=== PATIENT | male | born 1955 | race African-American/Black ===

== ENCOUNTER 2016-06-01 02:06 | Emergency (ER) | payer OTHER ==
[~2016-06-01] VITALS: Ht 175.3 cm; Wt 65.0 kg
[~2016-06-01 02:06] MED LIST: ALBU8HFA IH; AMLO10TA55 PO; AMOX1TAB15 PO; BRIM10DR10 OS; BRIN10DR OS; CARI350 PO; CHOL20002 PO; DOXY150T PO; HYDR25TA PO; LID5O TP; LORA10TA7 PO; NEBI5 PO; OMEP40CA12 PO; OXYB5 PO; PROMVCC5L PO; SIMV20TA6 PO; TRAV5DRO OS; TRI115C TP; TYL3 PO
[2016-06-01 03:43] LABS: BASOPHILS % (AUTO) 0.3 % (0.0-2.0); EOSINOPHILS % (AUTO) 7.4 % (1.0-6.0); HEMATOCRIT 34.6 % (41-53); HEMOGLOBIN 11.4 g/dL (13.5-17.5); LYMPHOCYTES % (AUTO) 23.8 % (22.0-44.0); MEAN CORPUSCULAR HEMOGLOBIN 29.7 pg (26.0-34.0); MEAN CORPUSCULAR HGB CONC 33.1 G/dL (31.0-37.0); MEAN CORPUSCULAR VOLUME 90 fL (80-100); MONOCYTES # (AUTO) 0.6 K/uL (0.1-1.0); MONOCYTES % (AUTO) 14.8 % (2.0-9.0); NEUTROPHILS # (AUTO) 2.2 K/uL (1.8-7.7); NEUTROPHILS % (AUTO) 53.7 % (40.0-70.0); PLATELET COUNT (AUTO) 281 K/uL (150-450); RED BLOOD CELL COUNT(AUTO) 3.85 MIL/uL (4.50-5.90); WHITE BLOOD COUNT (AUTO) 4.1 K/uL (4.5-11.0)
[2016-06-01 03:51] LABS: ANION GAP 10 mmol/L (8-16); CALCIUM, TOTAL 9.4 mg/dL (8.8-10.5); CARBON DIOXIDE 30 mmol/L (22-29); CHLORIDE 100 mmol/L (98-107); CREATININE 1.05 mg/dL (0.60-1.30); GLOMERULAR FILTR. RATE CALC > 60 mL/min (>60); POTASSIUM 3.6 mmol/L (3.5-5.1); SODIUM SERUM 140 mmol/L (136-145); UREA NITROGEN, BLOOD 8 mg/dL (7-18)
[2016-06-01 03:55] LABS: ALANINE AMINOTRANSFERASE 20 U/L (12-78); ALBUMIN 3.6 g/dL (3.4-5.0); ASPARTATE AMINOTRANSFERASE 18 U/L (15-37); BILIRUBIN,TOTAL 0.4 mg/dL (0.1-1.0); TOTAL PROTEIN, SERUM 7.7 g/dL (6.4-8.2)
[2016-06-01 04:57] LABS: APPEARANCE,URINE CLEAR (CLEAR); GLUCOSE, URINE (UA) NEGATIVE (NEGATIVE); PROTEIN,URINE NEGATIVE (NEGATIVE)
[2016-06-01 04:58] LABS: ADD UA MICROSCOPIC NO; KETONES,URINE NEGATIVE (NEGATIVE); LEUKOCYTE ESTERASE ,URINE NEGATIVE (NEGATIVE); OCCULT BLOOD,URINE NEGATIVE (NEGATIVE)
[2016-06-01 05:53] VITALS: BP 127/88
== END 2016-06-01 06:09 | disposition home or self-care (01) ==
LOC: EMS 02:06
DX: S46.812A Strain of other muscles, fascia and tendons at shoulder and upper arm level, left arm, initial encounter (principal); R10.9 Unspecified abdominal pain; I10 Essential (primary) hypertension; F17.210 Nicotine dependence, cigarettes, uncomplicated; F12.90 Cannabis use, unspecified, uncomplicated; X58.XXXA Exposure to other specified factors, initial encounter; Y93.89 Activity, other specified; Y92.89 Other specified places as the place of occurrence of the external cause; Y99.8 Other external cause status
CPT/HCPCS: 99284

== ENCOUNTER 2016-06-27 23:20 | Emergency (ER) | payer OTHER ==
[~2016-06-27] VITALS: Ht 175.3 cm; Wt 68.0 kg
[~2016-06-27 23:20] MED LIST changes: -AMOX1TAB15 PO; -DOXY150T PO; -LID5O TP; -PROMVCC5L PO; -TYL3 PO
[2016-06-28 01:24] LABS: BASOPHILS # (AUTO) 0.02 K/uL (0.00-0.20); BASOPHILS % (AUTO) 0.6 % (0.0-2.0); EOSINOPHILS # (AUTO) 0.29 K/uL (0.00-0.70); EOSINOPHILS % (AUTO) 7.24 % (1.0-6.0); HEMATOCRIT 32.4 % (41-53); HEMOGLOBIN 11.1 g/dL (13.5-17.5); LYMPHOCYTES # (AUTO) 1.7 K/uL (1.0-4.8); MEAN CORPUSCULAR HEMOGLOBIN 30.4 pg (26.0-34.0); MEAN CORPUSCULAR HGB CONC 34.2 G/dL (31.0-37.0); MEAN CORPUSCULAR VOLUME 89 fL (80-100); MONOCYTES # (AUTO) 0.5 K/uL (0.1-1.0); MONOCYTES % (AUTO) 11.3 % (2.0-9.0); NEUTROPHILS # (AUTO) 1.5 K/uL (1.8-7.7); NEUTROPHILS % (AUTO) 37.9 % (40.0-70.0); PLATELET COUNT (AUTO) 238 K/uL (150-450); RED BLOOD CELL COUNT(AUTO) 3.65 MIL/uL (4.50-5.90); RED CELL DISTRIBUTION WIDTH 15.2 % (11.5-14.5)
[2016-06-28 01:37] LABS: ALANINE AMINOTRANSFERASE 19 U/L (12-78); ALBUMIN 3.5 g/dL (3.4-5.0); ANION GAP 9 mmol/L (8-16); ASPARTATE AMINOTRANSFERASE 23 U/L (15-37); BILIRUBIN,TOTAL 0.4 mg/dL (0.1-1.0); CALCIUM, TOTAL 8.7 mg/dL (8.8-10.5); CARBON DIOXIDE 27 mmol/L (22-29); CHLORIDE 101 mmol/L (98-107); CREATININE 0.89 mg/dL (0.60-1.30); GLOMERULAR FILTR. RATE CALC > 60 mL/min (>60); SODIUM SERUM 137 mmol/L (136-145); TOTAL PROTEIN, SERUM 7.1 g/dL (6.4-8.2); UREA NITROGEN, BLOOD 15 mg/dL (7-18)
[2016-06-28 02:25] LABS: APPEARANCE,URINE CLEAR (CLEAR); GLUCOSE, URINE (UA) NEGATIVE (NEGATIVE); KETONES,URINE NEGATIVE (NEGATIVE); LEUKOCYTE ESTERASE ,URINE NEGATIVE (NEGATIVE); OCCULT BLOOD,URINE NEGATIVE (NEGATIVE); PH,URINE 5.5 (5.0-8.0); PROTEIN,URINE NEGATIVE (NEGATIVE)
[2016-06-28] MEDS ORDERED: POTASSIUM CHLORIDE 20 MEQ ER TABLET PO ONE (02:30)
[2016-06-28 02:34] VITALS: BP 121/78
[2016-06-28 03:02] LABS: RBC,URINE None Seen /HPF (0-2); WBC,URINE None Seen /HPF (0-5)
== END 2016-06-28 03:19 | disposition home or self-care (01) ==
LOC: EMS 23:22
DX: M79.604 Pain in right leg (principal); G89.29 Other chronic pain; E87.6 Hypokalemia; I10 Essential (primary) hypertension; F17.210 Nicotine dependence, cigarettes, uncomplicated; F12.90 Cannabis use, unspecified, uncomplicated
CPT/HCPCS: 36415; 80053; 80307; 81001; 85025; 99284; G0480

== ENCOUNTER 2016-10-02 01:15 | Emergency (ER) | payer OTHER ==
[~2016-10-02] VITALS: Ht 175.3 cm; Wt 65.9 kg
[2016-10-02] MEDS ORDERED: PROPARACAINE HCL 0.5% 15 ML OPHTHALMIC SOLUTION OS ONE (04:15)
[2016-10-02 06:14] VITALS: BP 127/81
[2016-10-02] MEDS ORDERED: TIMOLOL MALEATE 0.5% 5 ML OPHTHALMIC SOLUTION OS ONE (06:15)
[2016-10-02] MEDS ORDERED: AcetaZOLAMIDE 250 MG TABLET PO ONE (06:30)
== END 2016-10-02 06:50 | disposition home or self-care (01) ==
LOC: EMS 01:16
DX: H10.89 Other conjunctivitis (principal); H40.9 Unspecified glaucoma; I10 Essential (primary) hypertension; F17.210 Nicotine dependence, cigarettes, uncomplicated; F12.90 Cannabis use, unspecified, uncomplicated
CPT/HCPCS: 99284

== ENCOUNTER 2016-10-05 01:16 | Emergency (ER) | payer OTHER ==
[~2016-10-05] VITALS: Ht 175.3 cm; Wt 65.0 kg
[2016-10-05 01:50] VITALS: BP 119/67
== END 2016-10-05 02:13 | disposition home or self-care (01) ==
LOC: EMS 01:18
DX: S40.261A Insect bite (nonvenomous) of right shoulder, initial encounter (principal); I10 Essential (primary) hypertension; F12.90 Cannabis use, unspecified, uncomplicated; F17.210 Nicotine dependence, cigarettes, uncomplicated; W57.XXXA Bitten or stung by nonvenomous insect and other nonvenomous arthropods, initial encounter; Y93.89 Activity, other specified; Y92.89 Other specified places as the place of occurrence of the external cause; Y99.8 Other external cause status
CPT/HCPCS: 99281

== ENCOUNTER 2017-01-12 02:36 | Emergency (ER) | payer OTHER ==
[~2017-01-12] VITALS: Ht 175.3 cm; Wt 75.0 kg
[2017-01-12 06:05] VITALS: BP 127/80
== END 2017-01-12 06:40 | disposition home or self-care (01) ==
LOC: EMS 02:37
DX: S09.90XA Unspecified injury of head, initial encounter (principal); I10 Essential (primary) hypertension; W22.8XXA Striking against or struck by other objects, initial encounter; Y93.89 Activity, other specified; Y92.480 Sidewalk as the place of occurrence of the external cause; Y99.8 Other external cause status
CPT/HCPCS: 99283

== ENCOUNTER 2017-07-17 06:54 | Emergency (ER) | payer OTHER ==
[~2017-07-17] VITALS: Ht 182.9 cm; Wt 66.0 kg
[2017-07-17] MEDS ORDERED: HYDROCODONE/ACETAMINOPHEN 5-325 MG TABLET PO ONE (08:45)
[2017-07-17 09:54] VITALS: BP 163/56
== END 2017-07-17 10:46 | disposition home or self-care (01) ==
LOC: EMS 06:55
DX: S05.12XA Contusion of eyeball and orbital tissues, left eye, initial encounter (principal); S20.211A Contusion of right front wall of thorax, initial encounter; S00.83XA Contusion of other part of head, initial encounter; F17.210 Nicotine dependence, cigarettes, uncomplicated; I10 Essential (primary) hypertension; F12.90 Cannabis use, unspecified, uncomplicated; Z88.8 Allergy status to other drugs, medicaments and biological substances; W21.13XA Struck by golf club, initial encounter; Y93.89 Activity, other specified; Y92.39 Other specified sports and athletic area as the place of occurrence of the external cause; Y99.8 Other external cause status
CPT/HCPCS: 70486; 71101; 99284; 99406

== ENCOUNTER 2019-02-04 02:46 | Inpatient (IN) | payer MEDICARE, OTHER ==
[~2019-02-04] VITALS: Ht 175.3 cm; Wt 65.2 kg
[~2019-02-04 02:46] MED LIST changes: -BRIM10DR10 OS; -BRIN10DR OS; -CARI350 PO; -CHOL20002 PO; -LORA10TA7 PO; -OMEP40CA12 PO; -OXYB5 PO; -SIMV20TA6 PO
[2019-02-04 03:38] LABS: GLUCOSE,POINT OF CARE 140 MG/DL (70-110)
[2019-02-04 03:39] LABS: BASOPHILS % (AUTO) 0.6 % (0.0-2.0); EOSINOPHILS % (AUTO) 3.4 % (1.0-6.0); HEMATOCRIT 39.6 % (41-53); HEMOGLOBIN 13.4 g/dL (13.5-17.5); LYMPHOCYTES # (AUTO) 1.2 K/uL (1.0-4.8); LYMPHOCYTES % (AUTO) 27.5 % (22.0-44.0); MEAN CORPUSCULAR HEMOGLOBIN 32.3 pg (26.0-34.0); MEAN CORPUSCULAR HGB CONC 33.9 G/dL (31.0-37.0); MEAN CORPUSCULAR VOLUME 95 fL (80-100); MONOCYTES # (AUTO) 0.7 K/uL (0.1-1.0); MONOCYTES % (AUTO) 15.6 % (2.0-9.0); NEUTROPHILS # (AUTO) 2.4 K/uL (1.8-7.7); NEUTROPHILS % (AUTO) 52.9 % (40.0-70.0); PLATELET COUNT (AUTO) 265 K/uL (150-450); RED BLOOD CELL COUNT(AUTO) 4.15 MIL/uL (4.50-5.90)
[2019-02-04 04:03] LABS: INR 1.2 (0.9-1.1); PROTHROMBIN TIME 12.3 SEC (9.4-11.6)
[2019-02-04 04:07] LABS: ALANINE AMINOTRANSFERASE 21 U/L (12-78); ALBUMIN 3.7 g/dL (3.4-5.0); ALKALINE PHOSPHATASE 136 U/L (46-116); ANION GAP 12 mmol/L (8-16); ASPARTATE AMINOTRANSFERASE 20 U/L (15-37); BILIRUBIN,TOTAL 0.3 mg/dL (0.1-1.0); CALCIUM, TOTAL 9.2 mg/dL (8.8-10.5); CARBON DIOXIDE 27 mmol/L (22-29); CHLORIDE 101 mmol/L (98-107); CREATINE KINASE, TOTAL ONLY 187 U/L (39-308); CREATININE 0.94 mg/dL (0.60-1.30); GLOMERULAR FILTR. RATE CALC > 60 mL/min (>60); GLUCOSE,RANDOM 109 mg/dL (70-110); SODIUM SERUM 140 mmol/L (136-145); TOTAL PROTEIN, SERUM 7.5 g/dL (6.4-8.2); UREA NITROGEN, BLOOD 11 mg/dL (7-18)
[2019-02-04 04:10] LABS: POTASSIUM 2.8 mmol/L (3.5-5.1)
[2019-02-04 04:14] LABS: AMMONIA 42 umol/L (11-32)
[2019-02-04 04:17] LABS: TROPONIN I < 0.02 ng/mL (0.00-0.05)
[2019-02-04 04:21] LABS: LACTIC ACID 4.5 mmol/L (0.4-2.0)
[2019-02-04] MEDS ORDERED: SODIUM CHLORIDE 0.9% 1,000 ML IV ONE ×3 (04:26→08:30)
[2019-02-04] MEDS ORDERED: POTASSIUM CHLORIDE 20 MEQ ER TABLET PO ONE (04:30)
[2019-02-04] MEDS: POTASSIUM CHL 10 MEQ/WATER 50 ML IV SCH ×3 (05:02→07:30)
[2019-02-04 05:52] LABS: APPEARANCE,URINE CLEAR (CLEAR); BILIRUBIN,URINE NEGATIVE (NEGATIVE); GLUCOSE, URINE (UA) NEGATIVE (NEGATIVE); KETONES,URINE NEGATIVE (NEGATIVE); LEUKOCYTE ESTERASE ,URINE NEGATIVE (NEGATIVE); NITRATE,URINE NEGATIVE (NEGATIVE); OCCULT BLOOD,URINE NEGATIVE (NEGATIVE); PROTEIN,URINE NEGATIVE (NEGATIVE); UROBILINOGEN,URINE 0.2 mg/dL (<=1.0)
[2019-02-04 05:56] LABS: AMPHET/METH SCREEN,URINE NEGATIVE (NEGATIVE); BARBITURATE SCREEN, URINE NEGATIVE (NEGATIVE); BENZODIAZEPINES SCREEN,URINE NEGATIVE (NEGATIVE); CANNABINOID SCREEN,URINE NEGATIVE (NEGATIVE); COCAINE SCREEN,URINE NEGATIVE (NEGATIVE); METHADONE SCREEN, URINE NEGATIVE (NEGATIVE); OPIATE SCREEN,URINE NEGATIVE (NEGATIVE)
[2019-02-04 05:58] LABS: PHENCYCLIDINE SCREEN,URINE NEGATIVE (NEGATIVE)
[2019-02-04] MEDS ORDERED: ACETAMINOPHEN 325 MG TABLET PO PRN (08:15)
[2019-02-04] MEDS ORDERED: POTASSIUM CHLORIDE 20 MEQ ER TABLET PO PRN (08:30)
[2019-02-04] MEDS ORDERED: MAGNESIUM OXIDE 400 MG TABLET PO PRN (08:30)
[2019-02-04] MEDS ORDERED: MAGNESIUM SULFATE 4 GM/WATER 100 ML IV PRN (08:30)
[2019-02-04] MEDS ORDERED: MAGNESIUM SULFATE 2 GM/WATER 50 ML IV PRN (08:30)
[2019-02-04] MEDS ORDERED: CloNIDine HCL 0.1 MG TABLET PO PRN (08:30)
[2019-02-04] MEDS ORDERED: POTASSIUM CHL 10 MEQ/WATER 50 ML IV PRN (08:30)
[2019-02-04] MEDS: DOCUSATE SODIUM 100 MG CAPSULE PO SCH ×2 (08:52→20:56)
[2019-02-04] MEDS: MULTIVITAMINS WITH MINERALS, THERAPEUTIC TABLET PO SCH (08:52)
[2019-02-04] MEDS: FAMOTIDINE 20 MG TABLET PO SCH (08:52)
[2019-02-04] MEDS: HEPARIN SODIUM,PORCINE 5,000 UNITS/ML VIAL SQ SCH ×2 (08:53→20:56)
[2019-02-04 10:03] LABS: ALBUMIN 3.7 g/dL (3.4-5.0)
[2019-02-04 10:04] LABS: ACETAMINOPHEN < 2 mcg/mL (10-30)
[2019-02-04 20:59] VITALS: BP 127/94
[2019-02-04] MEDS ORDERED: SODIUM CHLORIDE 0.9% 250 ML IV ONE (21:49)
[2019-02-05 00:30] VITALS: BP 135/85
[2019-02-05 05:15] VITALS: BP 141/94
[2019-02-05 07:06] LABS: BASOPHILS % (AUTO) 0.3 % (0.0-2.0); EOSINOPHILS % (AUTO) 5.1 % (1.0-6.0); HEMATOCRIT 40.6 % (41-53); HEMOGLOBIN 13.8 g/dL (13.5-17.5); LYMPHOCYTES # (AUTO) 1.1 K/uL (1.0-4.8); LYMPHOCYTES % (AUTO) 29.7 % (22.0-44.0); MEAN CORPUSCULAR HEMOGLOBIN 32.2 pg (26.0-34.0); MEAN CORPUSCULAR HGB CONC 33.9 G/dL (31.0-37.0); MEAN CORPUSCULAR VOLUME 95 fL (80-100); MONOCYTES # (AUTO) 0.6 K/uL (0.1-1.0); MONOCYTES % (AUTO) 16.5 % (2.0-9.0); NEUTROPHILS # (AUTO) 1.8 K/uL (1.8-7.7); NEUTROPHILS % (AUTO) 48.4 % (40.0-70.0); PLATELET COUNT (AUTO) 244 K/uL (150-450); RED BLOOD CELL COUNT(AUTO) 4.28 MIL/uL (4.50-5.90); RED CELL DISTRIBUTION WIDTH 13.2 % (11.5-14.5)
[2019-02-05 07:13] LABS: ANION GAP 9 mmol/L (8-16); CALCIUM, TOTAL 8.6 mg/dL (8.8-10.5); CARBON DIOXIDE 27 mmol/L (22-29); CHLORIDE 107 mmol/L (98-107); CREATININE 0.79 mg/dL (0.60-1.30); GLOMERULAR FILTR. RATE CALC > 60 mL/min (>60); GLUCOSE,RANDOM 85 mg/dL (70-110); POTASSIUM 3.2 mmol/L (3.5-5.1); SODIUM SERUM 143 mmol/L (136-145); UREA NITROGEN, BLOOD 7 mg/dL (7-18)
[2019-02-05 07:52] VITALS: BP 149/77
[2019-02-05] MEDS: DOCUSATE SODIUM 100 MG CAPSULE PO SCH ×2 (10:44→21:00)
[2019-02-05] MEDS: FAMOTIDINE 20 MG TABLET PO SCH (10:44)
[2019-02-05] MEDS: MULTIVITAMINS WITH MINERALS, THERAPEUTIC TABLET PO SCH (10:44)
[2019-02-05] MEDS: HEPARIN SODIUM,PORCINE 5,000 UNITS/ML VIAL SQ SCH ×2 (10:45→21:08)
[2019-02-05 11:44] VITALS: BP 161/90
[2019-02-05 15:44] VITALS: BP 131/86
[2019-02-05 20:20] VITALS: BP 147/78
[2019-02-06 01:27] VITALS: BP 138/71
[2019-02-06 04:30] VITALS: BP 147/87
[2019-02-06] MEDS: MULTIVITAMINS WITH MINERALS, THERAPEUTIC TABLET PO SCH (08:17)
[2019-02-06] MEDS: FAMOTIDINE 20 MG TABLET PO SCH (08:17)
[2019-02-06] MEDS: DOCUSATE SODIUM 100 MG CAPSULE PO SCH (08:21)
[2019-02-06] MEDS: HEPARIN SODIUM,PORCINE 5,000 UNITS/ML VIAL SQ SCH (08:21)
[2019-02-06 08:26] VITALS: BP 150/90
[2019-02-06 12:20] VITALS: BP 153/88
== END 2019-02-06 15:35 | disposition home or self-care (01) | DRG 91 ==
LOC: EMS 02:46 → 5S 18:10
PROVIDERS: ADMIT Internal Medicine; ATTEND Internal Medicine
DX: G92 Toxic encephalopathy (principal); E43 Unspecified severe protein-calorie malnutrition; E87.6 Hypokalemia; F10.10 Alcohol abuse, uncomplicated; H54.62 Unqualified visual loss, left eye, normal vision right eye; I10 Essential (primary) hypertension; Y90.9 Presence of alcohol in blood, level not specified; F17.210 Nicotine dependence, cigarettes, uncomplicated; Z88.8 Allergy status to other drugs, medicaments and biological substances; Z68.21 Body mass index [BMI] 21.0-21.9, adult
CPT/HCPCS: 70450; 83605; 83735; 84132; 93005; G0480; G0481; J1644; J3475; J3480; J7030; J7050

== ENCOUNTER 2020-01-17 07:56 | Inpatient (IN) | payer MEDICARE, OTHER ==
[~2020-01-17] VITALS: Ht 175.3 cm; Wt 68.9 kg
[~2020-01-17 07:56] MED LIST changes: -NEBI5 PO; +NEBI5TAB2 PO
[2020-01-17] MEDS ORDERED: SODIUM CHLORIDE 0.9% 1,000 ML IV ONE ×2 (08:15→11:45)
[2020-01-17] MEDS ORDERED: FAMOTIDINE 10 MG/ML 2 ML VIAL IV ONE (08:15)
[2020-01-17] MEDS ORDERED: ONDANSETRON HCL 4 MG/2 ML VIAL IVP ONE (08:15)
[2020-01-17] MEDS ORDERED: KETOROLAC TROMETHAMINE 30 MG/ML VIAL IVP ONE ×2 (08:15→11:45)
[2020-01-17] MEDS ORDERED: PB/HYOSCY/ATR/SCOP/LIDO/MAALOX 55 ML BOTTLE PO ONE (08:15)
[2020-01-17 08:43] LABS: BASOPHILS % (AUTO) 0.5 % (0.0-2.0); EOSINOPHILS % (AUTO) 2.1 % (1.0-6.0); HEMATOCRIT 45.6 % (41-53); HEMOGLOBIN 15.8 g/dL (13.5-17.5); LYMPHOCYTES # (AUTO) 1.8 K/uL (1.0-4.8); LYMPHOCYTES % (AUTO) 20.9 % (22.0-44.0); MEAN CORPUSCULAR HEMOGLOBIN 33.3 pg (26.0-34.0); MEAN CORPUSCULAR HGB CONC 34.7 G/dL (31.0-37.0); MEAN CORPUSCULAR VOLUME 96 fL (80-100); MONOCYTES # (AUTO) 0.5 K/uL (0.1-1.0); NEUTROPHILS % (AUTO) 70.5 % (40.0-70.0); PLATELET COUNT (AUTO) 237 K/uL (150-450); RED BLOOD CELL COUNT(AUTO) 4.75 MIL/uL (4.50-5.90)
[2020-01-17] MEDS ORDERED: METOCLOPRAMIDE HCL 5 MG/ML 2 ML VIAL IVP ONE (09:00)
[2020-01-17] MEDS ORDERED: CAPSAICIN 0.025% 60 GM CREAM TP ONE (09:00)
[2020-01-17] MEDS ORDERED: DiphenhydrAMINE HCL 50 MG/ML VIAL IVP ONE (09:00)
[2020-01-17 09:27] LABS: ALANINE AMINOTRANSFERASE 24 U/L (12-78); ALBUMIN 3.8 g/dL (3.4-5.0); ALKALINE PHOSPHATASE 144 U/L (46-116); ANION GAP 13 mmol/L (8-16); ASPARTATE AMINOTRANSFERASE 23 U/L (15-37); BILIRUBIN,TOTAL 0.3 mg/dL (0.1-1.0); CALCIUM, TOTAL 9.2 mg/dL (8.8-10.5); CARBON DIOXIDE 25 mmol/L (22-29); CHLORIDE 101 mmol/L (98-107); CREATINE KINASE, TOTAL ONLY 102 U/L (39-308); CREATININE 0.95 mg/dL (0.60-1.30); GLOMERULAR FILTR. RATE CALC > 60 mL/min (>60); GLUCOSE,RANDOM 179 mg/dL (70-110); LIPASE 89 U/L (73-393); SODIUM SERUM 139 mmol/L (136-145); TOTAL PROTEIN, SERUM 7.5 g/dL (6.4-8.2); UREA NITROGEN, BLOOD 16 mg/dL (7-18)
[2020-01-17 09:35] LABS: POTASSIUM 2.6 mmol/L (3.5-5.1)
[2020-01-17] MEDS ORDERED: SODIUM CHLORIDE 0.9% 100 ML ONE (09:44)
[2020-01-17] MEDS ORDERED: IOVERSOL 320 MG/ML 100 ML VIAL ONE (09:44)
[2020-01-17] MEDS ORDERED: POTASSIUM CHLORIDE 20 MEQ ER TABLET PO ONE (09:45)
[2020-01-17] MEDS: POTASSIUM CHL 10 MEQ/WATER 50 ML IV SCH ×7 (09:54→20:15)
[2020-01-17 11:06] LABS: AMPHET/METH SCREEN,URINE POSITIVE (NEGATIVE); APPEARANCE,URINE CLEAR (CLEAR); BARBITURATE SCREEN, URINE NEGATIVE (NEGATIVE); BENZODIAZEPINES SCREEN,URINE NEGATIVE (NEGATIVE); BILIRUBIN,URINE NEGATIVE (NEGATIVE); CANNABINOID SCREEN,URINE POSITIVE (NEGATIVE); COCAINE SCREEN,URINE POSITIVE (NEGATIVE); GLUCOSE, URINE (UA) >=1000 mg/dL (NEGATIVE); KETONES,URINE NEGATIVE (NEGATIVE); LEUKOCYTE ESTERASE ,URINE NEGATIVE (NEGATIVE); METHADONE SCREEN, URINE NEGATIVE (NEGATIVE); NITRATE,URINE NEGATIVE (NEGATIVE); OCCULT BLOOD,URINE TRACE (NEGATIVE); OPIATE SCREEN,URINE NEGATIVE (NEGATIVE); PH,URINE 5.5 (5.0-8.0); PROTEIN,URINE NEGATIVE (NEGATIVE)
[2020-01-17 11:08] LABS: PHENCYCLIDINE SCREEN,URINE NEGATIVE (NEGATIVE)
[2020-01-17 11:17] LABS: BACTERIA,URINE None Seen /HPF (None Seen); SQUAMOUS EPITHELIAL CELL,UR Few /LPF (None Seen); WBC,URINE None Seen /HPF (0-5)
[2020-01-17] MEDS ORDERED: MORPHINE SULFATE 2 MG/ML SYRINGE IVP ONE (11:45)
[2020-01-17] MEDS ORDERED: 0.9% SODIUM CHLORIDE 10 ML SYRINGE IVP PRN (12:45)
[2020-01-17] MEDS ORDERED: ONDANSETRON HCL 4 MG/2 ML VIAL IVP PRN ×2 (12:45)
[2020-01-17] MEDS ORDERED: DEXTROSE 5%-0.45% SODIUM CHL 1,000 ML IV SCH (12:45)
[2020-01-17] MEDS ORDERED: ACETAMINOPHEN 325 MG TABLET PO PRN ×2 (12:45)
[2020-01-17] MEDS: PANTOPRAZOLE SODIUM 40 MG/VIAL IVP SCH (14:32)
[2020-01-17 16:01] LABS: POTASSIUM 3.2 mmol/L (3.5-5.1)
[2020-01-17] MEDS: HEPARIN SODIUM,PORCINE 5,000 UNITS/ML VIAL SQ SCH (16:33)
[2020-01-17 16:40] LABS: MAGNESIUM 1.7 mg/dL (1.80-2.40)
[2020-01-17] MEDS ORDERED: MAGNESIUM SULFATE 1 GM in DEXTROSE 5%-WATER 50 ML IV ONE (17:15)
[2020-01-17 21:00] VITALS: BP 117/78
[2020-01-17] MEDS: DOCUSATE SODIUM 100 MG CAPSULE PO SCH (21:00)
[2020-01-17] MEDS: MORPHINE SULFATE 2 MG/ML SYRINGE IVP PRN (21:03)
[2020-01-17] MEDS ORDERED: INFLUENZA VIRUS VACCINE QVS 2020-21 (6MO+)/PF 60 MCG/0.5 ML SYRINGE IM ONE (21:45)
[2020-01-17 22:00] VITALS: BP 125/84
[2020-01-17] MEDS ORDERED: MAGNESIUM SULFATE 4 GM/WATER 100 ML IV PRN (22:45)
[2020-01-17] MEDS ORDERED: MAGNESIUM SULFATE 2 GM/WATER 50 ML IV PRN (22:45)
[2020-01-17] MEDS ORDERED: MAGNESIUM OXIDE 400 MG TABLET PO PRN (22:45)
[2020-01-17] MEDS: PIPERACILLIN/TAZO 3.375 GM/D5W 50 ML IV SCH (23:06)
[2020-01-17] MEDS ORDERED: SODIUM CHLORIDE 0.9% 250 ML IV ONE (23:13)
[2020-01-17 23:37] LABS: LACTIC ACID 10.9 mmol/L (0.4-2.0)
[2020-01-18] VITALS: BP 109/50
[2020-01-18] MEDS ORDERED: POTASSIUM CHL 20 MEQ/0.45% NS 1,000 ML IV SCH
[2020-01-18] MEDS: HEPARIN SODIUM,PORCINE 5,000 UNITS/ML VIAL SQ SCH ×3 (00:11→16:00)
[2020-01-18] MEDS ORDERED: SODIUM CHLORIDE 0.9% 1,000 ML ONE ×2 (00:12→13:30)
[2020-01-18] MEDS ORDERED: SODIUM CHLORIDE 0.9% 1,000 ML IV ONE ×2 (00:15→09:15)
[2020-01-18 04:00] VITALS: BP 109/83
[2020-01-18] MEDS: PIPERACILLIN/TAZO 3.375 GM/D5W 50 ML IV SCH ×2 (04:21→10:14)
[2020-01-18] MEDS: MORPHINE SULFATE 2 MG/ML SYRINGE IVP PRN ×3 (04:43→18:30)
[2020-01-18 04:45] VITALS: BP 100/57
[2020-01-18 05:32] LABS: BASOPHILS % (AUTO) 0.4 % (0.0-2.0); EOSINOPHILS % (AUTO) 0.1 % (1.0-6.0); HEMATOCRIT 53.5 % (41-53); HEMOGLOBIN 17.6 g/dL (13.5-17.5); LYMPHOCYTES % (AUTO) 4.4 % (22.0-44.0); MEAN CORPUSCULAR HEMOGLOBIN 32.7 pg (26.0-34.0); MEAN CORPUSCULAR HGB CONC 32.8 G/dL (31.0-37.0); MEAN CORPUSCULAR VOLUME 100 fL (80-100); MONOCYTES # (AUTO) 1.3 K/uL (0.1-1.0); MONOCYTES % (AUTO) 5.6 % (2.0-9.0); PLATELET COUNT (AUTO) 244 K/uL (150-450); RED BLOOD CELL COUNT(AUTO) 5.38 MIL/uL (4.50-5.90); RED CELL DISTRIBUTION WIDTH 13.4 % (11.5-14.5)
[2020-01-18 06:02] LABS: NEUTROPHILS % (AUTO) 89.5 % (40.0-70.0)
[2020-01-18 06:04] LABS: CALCIUM, TOTAL 8.4 mg/dL (8.8-10.5); CREATININE 2.39 mg/dL (0.60-1.30); MAGNESIUM 2.4 mg/dL (1.80-2.40); PHOSPHORUS 4.5 mg/dL (2.5-4.9); POTASSIUM 4.4 mmol/L (3.5-5.1)
[2020-01-18] MEDS ORDERED: SODIUM CHLORIDE 0.45% 1,000 ML IV ONE (06:30)
[2020-01-18 08:00] VITALS: BP 97/33
[2020-01-18] MEDS ORDERED: NOREPINEPHRINE 4 MG/D5%-WATER 250 ML IV ONE (09:00)
[2020-01-18] MEDS: DOCUSATE SODIUM 100 MG CAPSULE PO SCH ×2 (09:00→21:00)
[2020-01-18] MEDS ORDERED: NOREPINEPHRINE 4 MG/D5%-WATER 250 ML IV PRN (09:15)
[2020-01-18] MEDS: PANTOPRAZOLE SODIUM 40 MG/VIAL IVP SCH (09:54)
[2020-01-18] MEDS ORDERED: BUPIVACAINE 0.25%/EPI 1:200,000/PF 10 ML VIAL ONE (10:53)
[2020-01-18] MEDS ORDERED: BUPIVACAINE HCL/PF 0.5% 30 ML VIAL ONE (10:54)
[2020-01-18] MEDS ORDERED: SODIUM BICARBONATE 150 MEQ in DEXTROSE 5%-WATER 1,000 ML IV SCH (11:00)
[2020-01-18] MEDS ORDERED: VANCOMYCIN HCL 1 GM/D5% WATER 200 ML IV ONE (11:00)
[2020-01-18] MEDS ORDERED: SODIUM CHLORIDE 0.9% 500 ML IV ONE ×2 (11:07→15:48)
[2020-01-18] MEDS ORDERED: HEPARIN SODIUM,PORCINE 1,000 UNITS/ML VIAL ONE (11:21)
[2020-01-18] MEDS ORDERED: MIDAZOLAM HCL 2 MG/2 ML VIAL IVP ONE (12:00)
[2020-01-18] MEDS ORDERED: FentaNYL CITRATE-PF 100 MCG/2 ML VIAL IVP ONE (12:00)
[2020-01-18] MEDS ORDERED: MetroNIDAZOLE 500 MG/NACL 100 ML IV ONE (12:26)
[2020-01-18] MEDS ORDERED: SODIUM CHLORIDE 0.9% 10 ML ONE (12:26)
[2020-01-18] MEDS ORDERED: CefTRIAXone SODIUM 1 GM/VIAL ONE (12:26)
[2020-01-18 13:05] LABS: ABG A-A DIFF O2 27.2 mmHg (10-20.0); ABG BASE EXCESS -18.9 mmol/L (-2.0-3.0); ABG CARBOXYHEMOGLOBIN 0.4 % (0.0-1.5); ABG HCO3 10.9 mmol/L (22.0-26.0); ABG METHEMOGLOBIN 0.3 % (0.0-1.5); ABG OXYGEN CONTENT 17.9 mL/dL (15.0-23.0); ABG OXYGEN SATURATION 99.5 % (95.0-98.0); ABG OXYHEMOGLOBIN 98.8 % (94.0-100.0); ABG PCO2 45 mmHg (35-45); ABG TOTAL HEMOGLOBIN 12.4 G/dL (12.0-18.0); PO2, ARTERIAL BG 279.2 mmHg (79.0-87.0); SOURCE, BLOOD GAS ARTERIAL; TEMPERATURE, FAHRENHEIT, BG 98.3 FAHREN (96.0-98.6)
[2020-01-18 13:06] LABS: ABG PH 7.037 (7.35-7.450); SITE, BLOOD GAS ARTERIAL LINE
[2020-01-18 13:07] LABS: O2 DEVICE,BLOOD GAS VENTILATOR (ROOM AIR); VT, ABG 500 ml
[2020-01-18] MEDS ORDERED: SODIUM BICARBONATE [ADULT] 8.4% 50 MEQ/50 ML SYRINGE IVP ONE (13:29)
[2020-01-18] MEDS ORDERED: ALBUMIN HUMAN 25%-12.5GM/50ML 50 ML ONE (13:30)
[2020-01-18] MEDS ORDERED: FentaNYL CITRATE-PF 100 MCG/2 ML VIAL IVP PRN (14:00)
[2020-01-18] MEDS ORDERED: HYDROmorphone 2 MG/ML SYRINGE IVP PRN (14:00)
[2020-01-18] MEDS ORDERED: MEPERIDINE-PF 25 MG/ML VIAL IVP PRN (14:00)
[2020-01-18 14:15] LABS: ABG A-A DIFF O2 107.6 mmHg (10-20.0); ABG BASE EXCESS -14.5 mmol/L (-2.0-3.0); ABG HCO3 13.9 mmol/L (22.0-26.0); ABG METHEMOGLOBIN 0.3 % (0.0-1.5); ABG OXYGEN CONTENT 15.9 mL/dL (15.0-23.0); ABG OXYGEN SATURATION 99.2 % (95.0-98.0); ABG OXYHEMOGLOBIN 98.9 % (94.0-100.0); ABG PCO2 32 mmHg (35-45); ABG PH 7.233 (7.35-7.450); PO2, ARTERIAL BG 217.9 mmHg (79.0-87.0); SITE, BLOOD GAS ARTERIAL LINE; SOURCE, BLOOD GAS ARTERIAL
[2020-01-18 14:16] LABS: O2 DEVICE,BLOOD GAS VENTILATOR (ROOM AIR); VT, ABG 500 ml
[2020-01-18] MEDS ORDERED: ALBUMIN HUMAN 5%-12.5GM/250ML 250 ML IV ONE ×3 (15:44→16:00)
[2020-01-18 16:00] VITALS: BP 143/62
[2020-01-18] MEDS ORDERED: PIPERACILLIN SODIUM/TAZOBACTAM 2.25 GM in DEXTROSE 5%-WATER 50 ML IV SCH (16:00)
[2020-01-18] MEDS: PROPOFOL 1000 MG/ISO-OSM 100 ML IV PRN ×2 (16:13→23:34)
[2020-01-18] MEDS: CefTRIAXone SODIUM 2 GM in DEXTROSE 5%-WATER 50 ML IV SCH (16:59)
[2020-01-18 17:14] LABS: CALCIUM, TOTAL 7.7 mg/dL (8.8-10.5); CREATININE 2.41 mg/dL (0.60-1.30); POTASSIUM 4.3 mmol/L (3.5-5.1)
[2020-01-18 17:45] LABS: ALBUMIN 2.6 g/dL (3.4-5.0); BILIRUBIN,TOTAL 0.5 mg/dL (0.1-1.0); MAGNESIUM 1.8 mg/dL (1.80-2.40); TOTAL PROTEIN, SERUM 3.9 g/dL (6.4-8.2)
[2020-01-18] MEDS: MetroNIDAZOLE 500 MG/NACL 100 ML IV SCH (18:31)
[2020-01-18] MEDS: SODIUM BICARBONATE 75 MEQ in DEXTROSE 5%-WATER 1,000 ML IV SCH (19:18)
[2020-01-18 20:00] VITALS: BP 98/43
[2020-01-19] VITALS (8 sets, daily range): BP systolic 123–162; BP diastolic 52–76
[2020-01-19] MEDS: HEPARIN SODIUM,PORCINE 5,000 UNITS/ML VIAL SQ SCH ×3 (00:08→20:17)
[2020-01-19] MEDS ORDERED: SODIUM CHLORIDE 0.9% 500 ML IV ONE ×3 (01:01→22:59)
[2020-01-19] MEDS: MetroNIDAZOLE 500 MG/NACL 100 ML IV SCH ×3 (01:58→18:31)
[2020-01-19] MEDS: MORPHINE SULFATE 2 MG/ML SYRINGE IVP PRN ×3 (03:30→17:42)
[2020-01-19 03:40] LABS: CREATININE,URINE RANDOM 40.6 mg/dL (30.0-125.0)
[2020-01-19 05:14] LABS: BASOPHILS % (AUTO) 0.1 % (0.0-2.0); EOSINOPHILS % (AUTO) 0.2 % (1.0-6.0); HEMOGLOBIN 10.6 g/dL (13.5-17.5); LYMPHOCYTES # (AUTO) 0.2 K/uL (1.0-4.8); LYMPHOCYTES % (AUTO) 1.8 % (22.0-44.0); MEAN CORPUSCULAR HEMOGLOBIN 33.6 pg (26.0-34.0); MEAN CORPUSCULAR HGB CONC 35.4 G/dL (31.0-37.0); MEAN CORPUSCULAR VOLUME 95 fL (80-100); MONOCYTES # (AUTO) 0.4 K/uL (0.1-1.0); MONOCYTES % (AUTO) 4.8 % (2.0-9.0); NEUTROPHILS # (AUTO) 8.6 K/uL (1.8-7.7); PLATELET COUNT (AUTO) 107 K/uL (150-450); RED BLOOD CELL COUNT(AUTO) 3.16 MIL/uL (4.50-5.90); RED CELL DISTRIBUTION WIDTH 12.9 % (11.5-14.5)
[2020-01-19 05:21] LABS: NEUTROPHILS % (AUTO) 93.1 % (40.0-70.0)
[2020-01-19 05:42] LABS: ALBUMIN 2.3 g/dL (3.4-5.0); BILIRUBIN,TOTAL 0.3 mg/dL (0.1-1.0); CALCIUM, TOTAL 7.3 mg/dL (8.8-10.5); CREATININE 2.68 mg/dL (0.60-1.30); MAGNESIUM 1.7 mg/dL (1.80-2.40); PHOSPHORUS 4.1 mg/dL (2.5-4.9); POTASSIUM 4.1 mmol/L (3.5-5.1); THYROID STIMULATING HORMONE 1.3 uIU/mL (0.36-3.74); TOTAL PROTEIN, SERUM 4.1 g/dL (6.4-8.2)
[2020-01-19] MEDS: SODIUM BICARBONATE 75 MEQ in DEXTROSE 5%-WATER 1,000 ML IV SCH ×2 (05:59→15:53)
[2020-01-19] MEDS: PROPOFOL 1000 MG/ISO-OSM 100 ML IV PRN ×4 (06:01→23:04)
[2020-01-19] MEDS: DOCUSATE SODIUM 100 MG CAPSULE PO SCH ×2 (08:59→20:17)
[2020-01-19] MEDS: PANTOPRAZOLE SODIUM 40 MG/VIAL IVP SCH (08:59)
[2020-01-19] MEDS: CefTRIAXone SODIUM 2 GM in DEXTROSE 5%-WATER 50 ML IV SCH (17:29)
[2020-01-19 19:26] LABS: CALCIUM, TOTAL 6.9 mg/dL (8.8-10.5); CREATININE 2.33 mg/dL (0.60-1.30); POTASSIUM 3.6 mmol/L (3.5-5.1)
[2020-01-19 19:29] LABS: MAGNESIUM 1.7 mg/dL (1.80-2.40); PHOSPHORUS 4.1 mg/dL (2.5-4.9)
[2020-01-19] MEDS: DEXTROSE 5%-0.45% SODIUM CHL 1,000 ML IV SCH (19:44)
[2020-01-19] MEDS: HydrALAZINE HCL 20 MG/ML VIAL IVP PRN (19:45)
[2020-01-19] MEDS ORDERED: SODIUM CHLORIDE 0.9% 250 ML IV ONE (22:59)
[2020-01-20] VITALS: BP 141/64
[2020-01-20] MEDS: MetroNIDAZOLE 500 MG/NACL 100 ML IV SCH ×3 (01:43→18:03)
[2020-01-20 04:00] VITALS: BP 140/66
[2020-01-20] MEDS: DEXTROSE 5%-0.45% SODIUM CHL 1,000 ML IV SCH ×2 (04:32→14:45)
[2020-01-20] MEDS: PROPOFOL 1000 MG/ISO-OSM 100 ML IV PRN ×2 (04:33→10:50)
[2020-01-20 05:37] LABS: BASOPHILS % (AUTO) 0.1 % (0.0-2.0); EOSINOPHILS % (AUTO) 1.8 % (1.0-6.0); HEMATOCRIT 25.7 % (41-53); HEMOGLOBIN 9.3 g/dL (13.5-17.5); LYMPHOCYTES # (AUTO) 0.5 K/uL (1.0-4.8); LYMPHOCYTES % (AUTO) 6.5 % (22.0-44.0); MEAN CORPUSCULAR HEMOGLOBIN 34.4 pg (26.0-34.0); MEAN CORPUSCULAR HGB CONC 36.2 G/dL (31.0-37.0); MEAN CORPUSCULAR VOLUME 95 fL (80-100); MONOCYTES # (AUTO) 0.4 K/uL (0.1-1.0); MONOCYTES % (AUTO) 4.5 % (2.0-9.0); NEUTROPHILS # (AUTO) 6.8 K/uL (1.8-7.7); PLATELET COUNT (AUTO) 83 K/uL (150-450); RED CELL DISTRIBUTION WIDTH 13.1 % (11.5-14.5)
[2020-01-20 05:41] LABS: NEUTROPHILS % (AUTO) 87.1 % (40.0-70.0)
[2020-01-20 05:53] LABS: ALBUMIN 1.9 g/dL (3.4-5.0); BILIRUBIN,TOTAL 0.3 mg/dL (0.1-1.0); CALCIUM, TOTAL 7.1 mg/dL (8.8-10.5); CREATININE 2.36 mg/dL (0.60-1.30); MAGNESIUM 1.9 mg/dL (1.80-2.40); PHOSPHORUS 3.8 mg/dL (2.5-4.9); POTASSIUM 3.6 mmol/L (3.5-5.1); TOTAL PROTEIN, SERUM 4.1 g/dL (6.4-8.2)
[2020-01-20 08:00] VITALS: BP 165/76
[2020-01-20 08:55] LABS: ABG METHEMOGLOBIN 0.3 % (0.0-1.5); SOURCE, BLOOD GAS ARTERIAL; TEMPERATURE, FAHRENHEIT, BG 98.1 FAHREN (96.0-98.6)
[2020-01-20] MEDS: PANTOPRAZOLE SODIUM 40 MG/VIAL IVP SCH (08:55)
[2020-01-20] MEDS: HEPARIN SODIUM,PORCINE 5,000 UNITS/ML VIAL SQ SCH ×2 (08:55→21:04)
[2020-01-20] MEDS: DOCUSATE SODIUM 100 MG CAPSULE PO SCH ×3 (08:56→10:09)
[2020-01-20 09:07] LABS: ABG A-A DIFF O2 59.2 mmHg (10-20.0); ABG CARBOXYHEMOGLOBIN 0.1 % (0.0-1.5); ABG HCO3 26.2 mmol/L (22.0-26.0); ABG OXYGEN CONTENT 12.6 mL/dL (15.0-23.0); ABG OXYGEN SATURATION 98.8 % (95.0-98.0); ABG OXYHEMOGLOBIN 98.4 % (94.0-100.0); ABG PCO2 41 mmHg (35-45); ABG TOTAL HEMOGLOBIN 8.9 G/dL (12.0-18.0); PO2, ARTERIAL BG 143.5 mmHg (79.0-87.0)
[2020-01-20 09:10] LABS: O2 DEVICE,BLOOD GAS VENTILATOR (ROOM AIR); PEEP,BG 5 cm H2O; SITE, BLOOD GAS ARTERIAL LINE; VT, ABG 500 ml
[2020-01-20] MEDS ORDERED: DEXMEDETOMIDINE HCL 400 MCG in SODIUM CHLORIDE 0.9% 96 ML IV PRN (10:15)
[2020-01-20 10:38] LABS: COVID AG,FIA SOURCE NASOPHARYNGEAL
[2020-01-20 12:00] VITALS: BP 153/70
[2020-01-20] MEDS: MORPHINE SULFATE 2 MG/ML SYRINGE IVP PRN ×2 (13:37→21:06)
[2020-01-20 15:36] LABS: ABG A-A DIFF O2 57.6 mmHg (10-20.0); ABG BASE EXCESS -0.3 mmol/L (-2.0-3.0); ABG CARBOXYHEMOGLOBIN 0.8 % (0.0-1.5); ABG HCO3 24.4 mmol/L (22.0-26.0); ABG METHEMOGLOBIN 0.3 % (0.0-1.5); ABG OXYGEN CONTENT 10.3 mL/dL (15.0-23.0); ABG OXYGEN SATURATION 99.1 % (95.0-98.0); ABG PCO2 37 mmHg (35-45); ABG PH 7.431 (7.35-7.450); PO2, ARTERIAL BG 149.1 mmHg (79.0-87.0); SOURCE, BLOOD GAS ARTERIAL; TEMPERATURE, FAHRENHEIT, BG 98.2 FAHREN (96.0-98.6)
[2020-01-20 15:56] LABS: ABG TOTAL HEMOGLOBIN 7.2 G/dL (12.0-18.0)
[2020-01-20 15:57] LABS: CPAP, BG 5 cm H2O; O2 DEVICE,BLOOD GAS VENTILATOR (ROOM AIR); PEEP,BG 5 cm H2O; PRESSURE SUPPORT, BG 8 cm H2O; SITE, BLOOD GAS ARTERIAL LINE; SPONTANEOUS VT, BG 585 ml; VENT MODE, BG SPONTANEOUS (ROOM AIR)
[2020-01-20 16:00] VITALS: BP 97/48
[2020-01-20] MEDS: CefTRIAXone SODIUM 2 GM in DEXTROSE 5%-WATER 50 ML IV SCH (17:05)
[2020-01-20 20:00] VITALS: BP 112/60
[2020-01-21] VITALS: BP 108/53
[2020-01-21] MEDS: MORPHINE SULFATE 2 MG/ML SYRINGE IVP PRN ×2 (01:07→13:18)
[2020-01-21] MEDS: DEXTROSE 5%-0.45% SODIUM CHL 1,000 ML IV SCH ×2 (01:07→10:50)
[2020-01-21] MEDS: MetroNIDAZOLE 500 MG/NACL 100 ML IV SCH ×3 (01:53→17:52)
[2020-01-21 04:00] VITALS: BP 136/90
[2020-01-21 05:27] LABS: CALCIUM, TOTAL 7.7 mg/dL (8.8-10.5); CREATININE 1.89 mg/dL (0.60-1.30); MAGNESIUM 1.9 mg/dL (1.80-2.40); PHOSPHORUS 2.4 mg/dL (2.5-4.9); POTASSIUM 3.2 mmol/L (3.5-5.1)
[2020-01-21] MEDS: POTASSIUM CHLORIDE 20 MEQ ER TABLET PO PRN (06:51)
[2020-01-21 08:00] VITALS: BP 115/68
[2020-01-21] MEDS ORDERED: POTASSIUM PHOS,M-BASIC-D-BASIC 10 MEQ in DEXTROSE 5%-WATER 100 ML IV ONE (08:30)
[2020-01-21] MEDS ORDERED: POTASSIUM CHL 10 MEQ/WATER 50 ML IV ONE (08:30)
[2020-01-21] MEDS: PANTOPRAZOLE SODIUM 40 MG/VIAL IVP SCH (08:45)
[2020-01-21] MEDS: HEPARIN SODIUM,PORCINE 5,000 UNITS/ML VIAL SQ SCH ×2 (08:45→20:20)
[2020-01-21] MEDS ORDERED: HALOPERIDOL LACTATE 5 MG/ML VIAL IVP PRN (10:15)
[2020-01-21 12:00] VITALS: BP 96/64
[2020-01-21 12:39] LABS: ANION GAP 12 mmol/L (8-16); BASOPHILS % (AUTO) 0.2 % (0.0-2.0); CALCIUM, TOTAL 6.9 mg/dL (8.8-10.5); CARBON DIOXIDE 22 mmol/L (22-29); CHLORIDE 113 mmol/L (98-107); GLOMERULAR FILTR. RATE CALC > 60 mL/min (>60); GLUCOSE,RANDOM 94 mg/dL (70-110); LYMPHOCYTES # (AUTO) 0.6 K/uL (1.0-4.8); MONOCYTES # (AUTO) 0.5 K/uL (0.1-1.0); NEUTROPHILS # (AUTO) 5.9 K/uL (1.8-7.7); POTASSIUM 3.4 mmol/L (3.5-5.1); RED BLOOD CELL COUNT(AUTO) 2.04 MIL/uL (4.50-5.90); SODIUM SERUM 147 mmol/L (136-145); UREA NITROGEN, BLOOD 35 mg/dL (7-18)
[2020-01-21 12:45] LABS: ALANINE AMINOTRANSFERASE 390 U/L (12-78); ALBUMIN 1.7 g/dL (3.4-5.0); ALKALINE PHOSPHATASE 48 U/L (46-116); ASPARTATE AMINOTRANSFERASE 315 U/L (15-37); BILIRUBIN,TOTAL 0.4 mg/dL (0.1-1.0); TOTAL PROTEIN, SERUM 3.9 g/dL (6.4-8.2)
[2020-01-21 13:00] LABS: EOSINOPHILS % (AUTO) 0.9 % (1.0-6.0); LYMPHOCYTES % (AUTO) 8.5 % (22.0-44.0); MEAN CORPUSCULAR HEMOGLOBIN 32.3 pg (26.0-34.0); MEAN CORPUSCULAR HGB CONC 34.2 G/dL (31.0-37.0); MEAN CORPUSCULAR VOLUME 95 fL (80-100); MONOCYTES % (AUTO) 6.6 % (2.0-9.0); NEUTROPHILS % (AUTO) 83.8 % (40.0-70.0); PLATELET COUNT (AUTO) 81 K/uL (150-450); RED CELL DISTRIBUTION WIDTH 13.2 % (11.5-14.5)
[2020-01-21 13:05] LABS: HEMOGLOBIN 6.6 g/dL (13.5-17.5)
[2020-01-21 13:06] LABS: HEMATOCRIT 19.3 % (41-53)
[2020-01-21 14:48] LABS: BASOPHILS % (AUTO) 0.1 % (0.0-2.0); HEMATOCRIT 22.3 % (41-53); HEMOGLOBIN 7.8 g/dL (13.5-17.5); LYMPHOCYTES # (AUTO) 0.7 K/uL (1.0-4.8); LYMPHOCYTES % (AUTO) 9.1 % (22.0-44.0); MEAN CORPUSCULAR HEMOGLOBIN 33.4 pg (26.0-34.0); MEAN CORPUSCULAR VOLUME 95 fL (80-100); MONOCYTES # (AUTO) 0.6 K/uL (0.1-1.0); MONOCYTES % (AUTO) 7.4 % (2.0-9.0); NEUTROPHILS # (AUTO) 6.8 K/uL (1.8-7.7); NEUTROPHILS % (AUTO) 82.4 % (40.0-70.0); RED BLOOD CELL COUNT(AUTO) 2.34 MIL/uL (4.50-5.90); RED CELL DISTRIBUTION WIDTH 13.4 % (11.5-14.5)
[2020-01-21 16:00] VITALS: BP 145/82
[2020-01-21] MEDS: CefTRIAXone SODIUM 2 GM in DEXTROSE 5%-WATER 50 ML IV SCH (17:13)
[2020-01-21] MEDS: POTASSIUM CHL 10 MEQ/WATER 50 ML IV PRN ×5 (17:18→23:55)
[2020-01-21 17:19] LABS: PLATELET COUNT (AUTO) 80 K/uL (150-450)
[2020-01-21 20:00] VITALS: BP 145/88
[2020-01-22] VITALS (8 sets, daily range): BP systolic 117–166; BP diastolic 50–99
[2020-01-22] MEDS: POTASSIUM CHL 10 MEQ/WATER 50 ML IV PRN (01:01)
[2020-01-22] MEDS: MetroNIDAZOLE 500 MG/NACL 100 ML IV SCH ×3 (01:01→17:52)
[2020-01-22] MEDS: MORPHINE SULFATE 2 MG/ML SYRINGE IVP PRN ×2 (02:10→11:32)
[2020-01-22] MEDS: DEXTROSE 5%-0.45% SODIUM CHL 1,000 ML IV SCH ×2 (04:57→16:24)
[2020-01-22 05:27] LABS: EOSINOPHILS % (AUTO) 0.3 % (1.0-6.0); HEMATOCRIT 25.2 % (41-53); HEMOGLOBIN 8.9 g/dL (13.5-17.5); LYMPHOCYTES # (AUTO) 0.6 K/uL (1.0-4.8); LYMPHOCYTES % (AUTO) 5.8 % (22.0-44.0); MEAN CORPUSCULAR HEMOGLOBIN 33.3 pg (26.0-34.0); MEAN CORPUSCULAR HGB CONC 35.2 G/dL (31.0-37.0); MEAN CORPUSCULAR VOLUME 95 fL (80-100); MONOCYTES # (AUTO) 0.9 K/uL (0.1-1.0); MONOCYTES % (AUTO) 8.6 % (2.0-9.0); NEUTROPHILS # (AUTO) 8.5 K/uL (1.8-7.7); PLATELET COUNT (AUTO) 105 K/uL (150-450); RED BLOOD CELL COUNT(AUTO) 2.67 MIL/uL (4.50-5.90); RED CELL DISTRIBUTION WIDTH 13.1 % (11.5-14.5)
[2020-01-22 05:37] LABS: ALBUMIN 2.3 g/dL (3.4-5.0); BILIRUBIN,TOTAL 0.5 mg/dL (0.1-1.0); CALCIUM, TOTAL 8.4 mg/dL (8.8-10.5); CREATININE 1.48 mg/dL (0.60-1.30); MAGNESIUM 2.1 mg/dL (1.80-2.40); PHOSPHORUS 2.8 mg/dL (2.5-4.9); POTASSIUM 3.7 mmol/L (3.5-5.1); TOTAL PROTEIN, SERUM 5.5 g/dL (6.4-8.2)
[2020-01-22 05:47] LABS: NEUTROPHILS % (AUTO) 85.3 % (40.0-70.0)
[2020-01-22] MEDS: HEPARIN SODIUM,PORCINE 5,000 UNITS/ML VIAL SQ SCH ×2 (08:47→20:24)
[2020-01-22] MEDS: PANTOPRAZOLE SODIUM 40 MG/VIAL IVP SCH (08:47)
[2020-01-22] MEDS: OCTREOTIDE ACETATE 100 MCG/ML VIAL IVP SCH ×3 (14:16→23:48)
[2020-01-22] MEDS: DIPHENOXYLATE/ATROP 2.5-0.025 MG/5 ML ORAL.SYG LIQUID PO SCH ×2 (16:18→20:23)
[2020-01-22] MEDS: CefTRIAXone SODIUM 2 GM in DEXTROSE 5%-WATER 50 ML IV SCH (16:18)
[2020-01-22] MEDS: HydrALAZINE HCL 20 MG/ML VIAL IVP PRN (16:32)
[2020-01-23] VITALS (7 sets, daily range): BP systolic 143–163; BP diastolic 87–108
[2020-01-23] MEDS: DEXTROSE 5%-0.45% SODIUM CHL 1,000 ML IV SCH ×3 (01:58→22:04)
[2020-01-23] MEDS: MetroNIDAZOLE 500 MG/NACL 100 ML IV SCH ×3 (01:59→18:18)
[2020-01-23] MEDS: MORPHINE SULFATE 2 MG/ML SYRINGE IVP PRN ×2 (03:01→15:52)
[2020-01-23 07:56] LABS: BASOPHILS % (AUTO) 0.1 % (0.0-2.0); EOSINOPHILS % (AUTO) 1.4 % (1.0-6.0); HEMATOCRIT 23.7 % (41-53); HEMOGLOBIN 8.3 g/dL (13.5-17.5); LYMPHOCYTES # (AUTO) 0.9 K/uL (1.0-4.8); LYMPHOCYTES % (AUTO) 11.7 % (22.0-44.0); MEAN CORPUSCULAR HEMOGLOBIN 33.2 pg (26.0-34.0); MEAN CORPUSCULAR HGB CONC 35.2 G/dL (31.0-37.0); MEAN CORPUSCULAR VOLUME 94 fL (80-100); MONOCYTES # (AUTO) 1.3 K/uL (0.1-1.0); MONOCYTES % (AUTO) 17.6 % (2.0-9.0); NEUTROPHILS # (AUTO) 5.2 K/uL (1.8-7.7); NEUTROPHILS % (AUTO) 69.2 % (40.0-70.0); PLATELET COUNT (AUTO) 117 K/uL (150-450); RED BLOOD CELL COUNT(AUTO) 2.52 MIL/uL (4.50-5.90)
[2020-01-23 08:15] LABS: ALANINE AMINOTRANSFERASE 239 U/L (12-78); ALBUMIN 2.1 g/dL (3.4-5.0); ALKALINE PHOSPHATASE 86 U/L (46-116); ANION GAP 5 mmol/L (8-16); ASPARTATE AMINOTRANSFERASE 106 U/L (15-37); BILIRUBIN,TOTAL 0.3 mg/dL (0.1-1.0); CALCIUM, TOTAL 7.8 mg/dL (8.8-10.5); CARBON DIOXIDE 26 mmol/L (22-29); CHLORIDE 111 mmol/L (98-107); CREATININE 1.25 mg/dL (0.60-1.30); GLOMERULAR FILTR. RATE CALC > 60 mL/min (>60); GLUCOSE,RANDOM 117 mg/dL (70-110); PHOSPHORUS 2.2 mg/dL (2.5-4.9); POTASSIUM 3.2 mmol/L (3.5-5.1); SODIUM SERUM 142 mmol/L (136-145); TOTAL PROTEIN, SERUM 4.9 g/dL (6.4-8.2); UREA NITROGEN, BLOOD 19 mg/dL (7-18)
[2020-01-23] MEDS: PANTOPRAZOLE SODIUM 40 MG/VIAL IVP SCH (08:50)
[2020-01-23] MEDS: OCTREOTIDE ACETATE 100 MCG/ML VIAL IVP SCH ×2 (08:50→15:44)
[2020-01-23] MEDS: HEPARIN SODIUM,PORCINE 5,000 UNITS/ML VIAL SQ SCH ×2 (08:51→21:55)
[2020-01-23] MEDS: DIPHENOXYLATE/ATROP 2.5-0.025 MG/5 ML ORAL.SYG LIQUID PO SCH ×2 (08:58→15:44)
[2020-01-23] MEDS ORDERED: POTASSIUM PHOS,M-BASIC-D-BASIC 20 MEQ in DEXTROSE 5%-WATER 100 ML IV ONE (12:00)
[2020-01-23] MEDS: CefTRIAXone SODIUM 2 GM in DEXTROSE 5%-WATER 50 ML IV SCH (16:34)
[2020-01-23] MEDS: AmLODIPine BESYLATE 10 MG TABLET PO SCH (16:34)
[2020-01-23] MEDS ORDERED: SODIUM CHLORIDE 0.9% 250 ML IV ONE (17:12)
[2020-01-23] MEDS: POTASSIUM CHL 10 MEQ/WATER 50 ML IV SCH ×2 (17:14→18:18)
[2020-01-23] MEDS: HydrALAZINE HCL 25 MG TABLET PO SCH (21:55)
[2020-01-24] VITALS (8 sets, daily range): BP systolic 130–167; BP diastolic 73–106
[2020-01-24] MEDS: OCTREOTIDE ACETATE 100 MCG/ML VIAL IVP SCH ×4 (00:42→23:35)
[2020-01-24] MEDS: POTASSIUM CHLORIDE 20 MEQ ER TABLET PO PRN (00:43)
[2020-01-24] MEDS: MetroNIDAZOLE 500 MG/NACL 100 ML IV SCH ×3 (01:54→17:24)
[2020-01-24 06:26] LABS: HEMATOCRIT 25.2 % (41-53); HEMOGLOBIN 9.1 g/dL (13.5-17.5); MEAN CORPUSCULAR HEMOGLOBIN 33.6 pg (26.0-34.0); MEAN CORPUSCULAR HGB CONC 35.9 G/dL (31.0-37.0); MEAN CORPUSCULAR VOLUME 94 fL (80-100); PLATELET COUNT (AUTO) 156 K/uL (150-450); RED CELL DISTRIBUTION WIDTH 13.2 % (11.5-14.5)
[2020-01-24 06:40] LABS: ALANINE AMINOTRANSFERASE 172 U/L (12-78); ALBUMIN 2.1 g/dL (3.4-5.0); ALKALINE PHOSPHATASE 84 U/L (46-116); ANION GAP 9 mmol/L (8-16); ASPARTATE AMINOTRANSFERASE 64 U/L (15-37); BILIRUBIN,TOTAL 0.3 mg/dL (0.1-1.0); CALCIUM, TOTAL 8.1 mg/dL (8.8-10.5); CARBON DIOXIDE 23 mmol/L (22-29); CHLORIDE 107 mmol/L (98-107); CREATININE 1.19 mg/dL (0.60-1.30); GLOMERULAR FILTR. RATE CALC > 60 mL/min (>60); GLUCOSE,RANDOM 116 mg/dL (70-110); POTASSIUM 3.6 mmol/L (3.5-5.1); SODIUM SERUM 139 mmol/L (136-145); TOTAL PROTEIN, SERUM 5.1 g/dL (6.4-8.2); UREA NITROGEN, BLOOD 14 mg/dL (7-18)
[2020-01-24 07:30] LABS: BAND NEUTROPHILS % (MANUAL) 3 % (0-5); EOSINOPHILS % (MANUAL) 1 % (1-6); LYMPHOCYTES % (MANUAL) 14 % (22-44); MONOCYTES % (MANUAL) 6 % (2-9); SEGMENTED NEUTROPHILS % 76 % (40-70)
[2020-01-24] MEDS: PANTOPRAZOLE SODIUM 40 MG/VIAL IVP SCH (08:52)
[2020-01-24] MEDS: HEPARIN SODIUM,PORCINE 5,000 UNITS/ML VIAL SQ SCH ×2 (08:52→20:23)
[2020-01-24] MEDS: NEBIVOLOL HCL 5 MG TABLET PO SCH (08:53)
[2020-01-24] MEDS: HydrALAZINE HCL 25 MG TABLET PO SCH ×2 (08:53→20:23)
[2020-01-24] MEDS: AmLODIPine BESYLATE 10 MG TABLET PO SCH (08:53)
[2020-01-24] MEDS ORDERED: MAGNESIUM SULFATE 1 GM in DEXTROSE 5%-WATER 50 ML IV ONE (10:45)
[2020-01-24] MEDS: DIPHENOXYLATE/ATROP 2.5-0.025 MG/5 ML ORAL.SYG LIQUID PO SCH ×4 (11:20→21:29)
[2020-01-24] MEDS: CefTRIAXone SODIUM 2 GM in DEXTROSE 5%-WATER 50 ML IV SCH (16:28)
[2020-01-24] MEDS: DEXTROSE 5%-0.45% SODIUM CHL 1,000 ML IV SCH (17:15)
[2020-01-25] MEDS: MetroNIDAZOLE 500 MG/NACL 100 ML IV SCH ×2 (01:05→12:41)
[2020-01-25] MEDS: DEXTROSE 5%-0.45% SODIUM CHL 1,000 ML IV SCH (03:24)
[2020-01-25 04:10] VITALS: BP 142/85
[2020-01-25] MEDS: MORPHINE SULFATE 2 MG/ML SYRINGE IVP PRN ×2 (05:52→12:50)
[2020-01-25 06:35] LABS: BASOPHILS % (AUTO) 0.2 % (0.0-2.0); HEMATOCRIT 24.8 % (41-53); HEMOGLOBIN 8.5 g/dL (13.5-17.5); LYMPHOCYTES % (AUTO) 9.8 % (22.0-44.0); MEAN CORPUSCULAR HEMOGLOBIN 32.3 pg (26.0-34.0); MEAN CORPUSCULAR HGB CONC 34.4 G/dL (31.0-37.0); MEAN CORPUSCULAR VOLUME 94 fL (80-100); MONOCYTES % (AUTO) 18.6 % (2.0-9.0); NEUTROPHILS # (AUTO) 7.3 K/uL (1.8-7.7); NEUTROPHILS % (AUTO) 69.4 % (40.0-70.0); PLATELET COUNT (AUTO) 205 K/uL (150-450); RED BLOOD CELL COUNT(AUTO) 2.64 MIL/uL (4.50-5.90)
[2020-01-25 07:18] VITALS: BP 146/94
[2020-01-25 07:29] LABS: ALANINE AMINOTRANSFERASE 127 U/L (12-78); ALKALINE PHOSPHATASE 83 U/L (46-116); ANION GAP 9 mmol/L (8-16); ASPARTATE AMINOTRANSFERASE 43 U/L (15-37); BILIRUBIN,TOTAL 0.3 mg/dL (0.1-1.0); CALCIUM, TOTAL 7.9 mg/dL (8.8-10.5); CARBON DIOXIDE 22 mmol/L (22-29); CHLORIDE 105 mmol/L (98-107); GLOMERULAR FILTR. RATE CALC > 60 mL/min (>60); GLUCOSE,RANDOM 112 mg/dL (70-110); PHOSPHORUS 3.1 mg/dL (2.5-4.9); POTASSIUM 3.2 mmol/L (3.5-5.1); SODIUM SERUM 136 mmol/L (136-145); TOTAL PROTEIN, SERUM 4.9 g/dL (6.4-8.2); UREA NITROGEN, BLOOD 11 mg/dL (7-18)
[2020-01-25] MEDS: HEPARIN SODIUM,PORCINE 5,000 UNITS/ML VIAL SQ SCH (08:21)
[2020-01-25] MEDS: POTASSIUM CHLORIDE 20 MEQ ER TABLET PO PRN (08:21)
[2020-01-25] MEDS: PANTOPRAZOLE SODIUM 40 MG/VIAL IVP SCH (08:21)
[2020-01-25] MEDS: HydrALAZINE HCL 25 MG TABLET PO SCH (08:22)
[2020-01-25] MEDS: AmLODIPine BESYLATE 10 MG TABLET PO SCH (08:23)
[2020-01-25] MEDS: NEBIVOLOL HCL 5 MG TABLET PO SCH (08:23)
[2020-01-25] MEDS: OCTREOTIDE ACETATE 100 MCG/ML VIAL IVP SCH (08:24)
[2020-01-25] MEDS: DIPHENOXYLATE/ATROP 2.5-0.025 MG/5 ML ORAL.SYG LIQUID PO SCH (09:26)
[2020-01-25] MEDS ORDERED: MAGNESIUM SULFATE 2 GM/WATER 50 ML IV ONE (11:00)
[2020-01-25] MEDS: POTASSIUM CHL 10 MEQ/WATER 50 ML IV SCH ×3 (11:00→13:00)
[2020-01-25] MEDS ORDERED: POTASSIUM CHLORIDE 20 MEQ ER TABLET PO ONE (11:00)
[2020-01-25] MEDS ORDERED: HYDR-2924 PO (12:02)
[2020-01-25] MEDS ORDERED: METR500 PO (12:02)
[2020-01-25] MEDS ORDERED: AMOX1TAB15 PO (12:02)
== END 2020-01-25 14:45 | disposition home health service (06) | DRG 853 ==
LOC: EMS 08:08 → ICU 12:40 → 6N 01-23 04:10
PROVIDERS: ADMIT Internal Medicine; ATTEND Internal Medicine
PROC: 3E02340 Introduction of Influenza Vaccine into Muscle, Percutaneous Approach (ICD-10-PCS; 2020-01-17)
PROC: 0D9670Z Drainage of Stomach with Drainage Device, Via Natural or Artificial Opening (ICD-10-PCS; 2020-01-17)
PROC: 0DU807Z Supplement Small Intestine with Autologous Tissue Substitute, Open Approach (ICD-10-PCS; 2020-01-18)
PROC: 0DN80ZZ Release Small Intestine, Open Approach (ICD-10-PCS; 2020-01-18)
PROC: 0DTJ0ZZ Resection of Appendix, Open Approach (ICD-10-PCS; 2020-01-18)
PROC: 06HY33Z Insertion of Infusion Device into Lower Vein, Percutaneous Approach (ICD-10-PCS; 2020-01-18)
PROC: B54BZZA Ultrasonography of Right Lower Extremity Veins, Guidance (ICD-10-PCS; 2020-01-18)
PROC: 0DB80ZZ Excision of Small Intestine, Open Approach (ICD-10-PCS; principal; 2020-01-18 11:00)
DX: A41.9 Sepsis, unspecified organism (principal); R65.21 Severe sepsis with septic shock; N17.0 Acute kidney failure with tubular necrosis; J96.00 Acute respiratory failure, unspecified whether with hypoxia or hypercapnia; K55.029 Acute infarction of small intestine, extent unspecified; E87.0 Hyperosmolality and hypernatremia; E87.2 Acidosis; I96 Gangrene, not elsewhere classified; K56.50 Intestinal adhesions [bands], unspecified as to partial versus complete obstruction; R18.8 Other ascites; E87.6 Hypokalemia; H54.62 Unqualified visual loss, left eye, normal vision right eye; F19.10 Other psychoactive substance abuse, uncomplicated; F14.10 Cocaine abuse, uncomplicated; F12.10 Cannabis abuse, uncomplicated; R00.1 Bradycardia, unspecified; R63.0 Anorexia; J44.9 Chronic obstructive pulmonary disease, unspecified; F17.210 Nicotine dependence, cigarettes, uncomplicated; E83.42 Hypomagnesemia; D64.9 Anemia, unspecified; D69.6 Thrombocytopenia, unspecified; E83.39 Other disorders of phosphorus metabolism; E86.0 Dehydration; E87.5 Hyperkalemia; I10 Essential (primary) hypertension; Z79.899 Other long term (current) drug therapy; Z87.442 Personal history of urinary calculi; Z68.22 Body mass index [BMI] 22.0-22.9, adult; Z88.8 Allergy status to other drugs, medicaments and biological substances; Z23 Encounter for immunization
CPT/HCPCS: 36600; 74021; 74177; 76770; 82306; 82570; 82805; 83605; 83735; 84100; 84132; 84300; 84443; 84540; 87070; 87081; 87205; 87426; 88302; 88307; 90686; 93005; 93306; 94002; 94003; 97116; 97162; 97165; 97530; 97535; 99291; C9113; G0378; J0360; J0696; J1200; J1644; J1885; J2250; J2270; J2354; J2405; J2543; J2704; J2765; J3010; J3370; J3475; J3480; J3490; J7030; J7040; J7050; J7060; P9041; P9047; 36415-L1; 36415-TC; 71045-TC

== ENCOUNTER 2020-09-12 22:40 | Emergency (ER) | payer MEDICARE, OTHER ==
[~2020-09-12] VITALS: Ht 175.3 cm; Wt 56.8 kg
[~2020-09-12 22:40] MED LIST changes: +AMOX1TAB15 PO; +HYDR50TA36 PO; +METR500 PO
[2020-09-13 02:05] LABS: COVID AG,FIA SOURCE NASOPHARYNGEAL
[2020-09-13] MEDS ORDERED: IBUPROFEN 400 MG TABLET PO ONE (03:00)
[2020-09-13 03:21] VITALS: BP 118/72
== END 2020-09-13 03:21 | disposition home or self-care (01) ==
LOC: EMS 22:40
DX: M25.561 Pain in right knee (principal); I10 Essential (primary) hypertension; F12.90 Cannabis use, unspecified, uncomplicated; F15.90 Other stimulant use, unspecified, uncomplicated; F17.210 Nicotine dependence, cigarettes, uncomplicated; Z88.8 Allergy status to other drugs, medicaments and biological substances; Z79.899 Other long term (current) drug therapy; Z20.822 Contact with and (suspected) exposure to COVID-19
CPT/HCPCS: 99283